=== PATIENT | female | born 1935 | race Caucasian/White ===

== ENCOUNTER 2021-03-12 14:09 | Inpatient (IN) | payer OTHER ==
[~2021-03-12] VITALS: Ht 149.9 cm; Wt 59.4 kg
[2021-03-12] MEDS ORDERED: TOPAMAX200 MG PO (14:56)
[2021-03-12] MEDS ORDERED: LYRICA20 MG/1 ML (14:57)
== END 2021-03-14 10:38 | disposition home or self-care (01) | DRG 309 ==
LOC: ER 14:09 → MEDI 16:31
PROVIDERS: ADMIT Internal Medicine; ATTEND Internal Medicine
PROC: 4A12X4Z Monitoring of Cardiac Electrical Activity, External Approach (ICD-10-PCS; principal; 2021-03-12)
PROC: B24BZZZ Ultrasonography of Heart with Aorta (ICD-10-PCS; 2021-03-12)
PROC: 5A2204Z Restoration of Cardiac Rhythm, Single (ICD-10-PCS; 2021-03-13)
DX: I48.91 Unspecified atrial fibrillation (principal); E87.0 Hyperosmolality and hypernatremia; I69.318 Other symptoms and signs involving cognitive functions following cerebral infarction; D69.6 Thrombocytopenia, unspecified; Z20.822 Contact with and (suspected) exposure to COVID-19

== ENCOUNTER 2021-05-23 17:37 | Emergency (ER) | payer OTHER ==
[~2021-05-23] VITALS: Ht 152.4 cm; Wt 49.9 kg
[~2021-05-23 17:37] MED LIST: LYRICA20 MG/1 ML; TOPAMAX200 MG PO
[2021-05-23] MEDS ORDERED: LOSARTAN POTASS50 MG PO (17:44)
[2021-05-23] MEDS ORDERED: KAPSPARGO SPRIN50 MG PO (17:44)
== END 2021-05-23 22:05 | disposition home or self-care (01) ==
LOC: ER 17:37
DX: I63.89 Other cerebral infarction (principal); I10 Essential (primary) hypertension; G45.8 Other transient cerebral ischemic attacks and related syndromes; I69.398 Other sequelae of cerebral infarction; R20.8 Other disturbances of skin sensation; R53.1 Weakness; R51.9 Headache, unspecified; R11.11 Vomiting without nausea; Z03.818 Encounter for observation for suspected exposure to other biological agents ruled out

== ENCOUNTER 2024-05-02 15:38 | Emergency (ER) | payer OTHER ==
[~2024-05-02] VITALS: Ht 152.4 cm; Wt 59.0 kg
[~2024-05-02 15:38] MED LIST changes: +KAPSPARGO SPRIN50 MG PO; +LOSARTAN POTASS50 MG PO
[2024-05-02] MEDS ORDERED: ELIQUIS2.5 MG PO (16:39)
[2024-05-02] MEDS ORDERED: GLIMEPIRIDE2 M1 PO (16:39)
[2024-05-02] MEDS ORDERED: MEMANTINE HCL E28 MG PO (16:40)
[2024-05-02] MEDS ORDERED: TOPROL XL50 M1 PO (16:40)
[2024-05-02] MEDS ORDERED: SYNTHROID50 MCG PO (16:40)
[2024-05-02] MEDS ORDERED: DETROL LA4 MG PO (16:40)
[2024-05-02] MEDS ORDERED: INTEGRA PLUS C1 EACH PO (16:41)
[2024-05-02] MEDS ORDERED: ANTIVERT25 M2 PO (16:41)
[2024-05-02] MEDS ORDERED: TOPIRAMATE200 MG PO (16:41)
[2024-05-02 19:19] LABS: HEMATOCRIT 37.6 % (36.0-45.00); HEMOGLOBIN 12.8 g/dL (12.0-15.00); MEAN CELL VOLUME 94.1 fL (80.00-100.00); MEAN CORPUSCULAR HEMOGLOBIN 31.9 pg (27.00-32.0); MEAN CORPUSCULAR HGB CONC 33.9 g/dl (32.0-36.0); RED CELL DISTRIBUTION WIDTH 15.3 % (11.5-14.5)
[2024-05-02 19:20] LABS: PLATELET COUNT 80 K/uL (150-450)
[2024-05-02 19:32] LABS: CALCIUM 9.1 mg/dL (8.5-10.1); CREATININE SERUM 0.83 mg/dL (0.55-1.02); GFR 64.73; POTASSIUM 4.2 mEq/L (3.5-5.1)
== END 2024-05-02 21:59 | disposition home or self-care (01) ==
LOC: ER 15:40
PROVIDERS: General Practice
DX: S00.93XA Contusion of unspecified part of head, initial encounter (principal); W18.30XA Fall on same level, unspecified, initial encounter; Y93.89 Activity, other specified; Y92.89 Other specified places as the place of occurrence of the external cause; Y99.9 Unspecified external cause status; G30.9 Alzheimer's disease, unspecified; F02.80 Dementia in other diseases classified elsewhere, unspecified severity, without behavioral disturbance, psychotic disturbance, mood disturbance, and anxiety; M25.552 Pain in left hip; M25.542 Pain in joints of left hand; M25.572 Pain in left ankle and joints of left foot